=== PATIENT | male | born 1980 | race Caucasian/White ===

== ENCOUNTER 2018-06-20 05:32 | Emergency (ER) | payer MEDICAID ==
[~2018-06-20] VITALS: Ht 172.7 cm; Wt 140.0 kg
[2018-06-20 05:32] VITALS: BP 119/64
[2018-06-20 11:35] LABS: HIV ANTIBODY 1&2 RAPID NON-REACTIVE (Neg)
[2018-06-21 08:17] LABS: HEP B CORE AB, IGM Negative (Negative); HEP B CORE AB, TOT Negative (Negative); HEPATITIS C ANTIBODY >11.0 s/co ratio (0.0-0.9)
== END 2018-06-20 06:10 | disposition home or self-care (01) ==
LOC: ER 05:32
DX: S00.81XA Abrasion of other part of head, initial encounter (principal); S60.519A Abrasion of unspecified hand, initial encounter; F15.10 Other stimulant abuse, uncomplicated; X58.XXXA Exposure to other specified factors, initial encounter; Y93.89 Activity, other specified; Y92.89 Other specified places as the place of occurrence of the external cause; Y99.8 Other external cause status
CPT/HCPCS: 36415; 86703; 86704; 86705; 86706; 86803; 99284

== ENCOUNTER 2018-08-25 08:53 | Emergency (ER) | payer MEDICAID, OTHER ==
[~2018-08-25] VITALS: Ht 170.2 cm; Wt 77.0 kg
[2018-08-25] MEDS ORDERED: ketorolac trometh inj. 60 MG/2 ML VIAL IM ONE (09:15)
[2018-08-25] MEDS ORDERED: CYCL-1 PO (09:16)
[2018-08-25 09:31] VITALS: BP 144/70
== END 2018-08-25 09:39 | disposition home or self-care (01) ==
LOC: ER 08:53
DX: M62.830 Muscle spasm of back (principal); F15.90 Other stimulant use, unspecified, uncomplicated
CPT/HCPCS: 96372; 99283; J1885

== ENCOUNTER 2021-02-23 09:43 | Emergency (ER) | payer SELFPAY ==
[~2021-02-23] VITALS: Ht 157.5 cm; Wt 68.0 kg
[~2021-02-23 09:43] MED LIST: CYCL-1 PO
[2021-02-23 10:07] VITALS: BP 119/63
[2021-02-23] MEDS ORDERED: TETanus/Pertussis (Acell)/Diphther VAC/PF (Tdap-Adult) 0.5ml syringe IMVAC ONE (11:35)
[2021-02-23] MEDS ORDERED: sulfamethoxazole/trimethoprim DS (800/160mg) tablet PO ONE (12:00)
[2021-02-23] MEDS ORDERED: SULF1TAB48 PO (12:04)
== END 2021-02-23 12:15 | disposition home or self-care (01) ==
LOC: ER 09:43
DX: L03.116 Cellulitis of left lower limb (principal); M79.672 Pain in left foot; F17.200 Nicotine dependence, unspecified, uncomplicated; F15.90 Other stimulant use, unspecified, uncomplicated; Z20.3 Contact with and (suspected) exposure to rabies; Z79.2 Long term (current) use of antibiotics
CPT/HCPCS: 73630; 90471; 90715; 99283